=== PATIENT | male | born 1975 ===

== ENCOUNTER 2019-01-14 00:40 | Emergency (ER) | payer OTHER ==
[2019-01-14] MEDS ORDERED: ULTRAM PO ONE (03:46)
--- NOTE | 2019-01-14 03:50 | Emergency Department Report ---
Upper Extremity - HPI Chief Complaint: Extremity Injury, Upper Stated Complaint: BILATERAL SHOULDER PAIN Time Seen by Provider: 01/14/19 03:36 Upper Extremity: Left Shoulder, Right Shoulder Occurred When: 3 Days Mechanism: Unsure Severity: severe Symptoms: Yes Pain with Movement, Yes Limited Range of Movement, No Deformity, No Numbness, No Weakness, No Swelling, No Bruising/Ecchymosis, No Laceration or Abrasion Other History: 43-year-old -[place] male presents to the emergency room or bilateral shoulder pain 72 hours. 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 Patient reports that he last took ibuprofen 12 hours ago Aleve 8 hours ago and is currently has icy hot patches on his shoulders. Patient reports he is not able to elevate his arms above his elbow height. Patient denies any trauma. He has no past medical history takes no medications on a daily basis and has no known drug allergies. ED Review of Systems ROS: Stated complaint: BILATERAL SHOULDER PAIN Other details as noted in HPI Comment: All other systems reviewed and negative Musculoskeletal: arthralgia (bilateral shoulders) ED Past Medical Hx - Past Medical History Previous Medical History?: No - Surgical History Past Surgical History?: Yes Additional Surgical History: oral, Left hand /wrist - Social History Smoking Status: Current Every Day Smoker Substance Use Type: Alcohol, Marijuana - Medications Home Medications: Home Medications Medication Instructions Recorded Confirmed Last Taken Type Ibuprofen [Motrin 600 MG tab] 600 mg PO Q8H PRN #21 tablet 01/14/19 Unknown Rx methOCARBAMOL [Robaxin TAB] 500 mg PO BID #14 tab 01/14/19 Unknown Rx Upper Extremity Exam - Exam General: Vital signs noted. No distress. Alert and acting appropriately. Head and Torso: No HEENT Abnormality, No Neck Tenderness, No Chest/Lungs Abnormality, No Abdominal Tenderness, No Back Tenderness Shoulder Exam: Yes Shoulder Tenderness, Yes AC Joint Tenderness, No Clavicle Tenderness, No Normal Range of Motion in Shoulder, No Shoulder Deformity Arm Exam: No Arm/Humerus Tenderness, No Arm Deformity Elbow: No Elbow Tenderness, No Normal Range of Motion in Elbow, No Elbow Deformity Forearm: No Forearm Tenderness, No Forearm Deformity, No Pain with Pronation, No Pain with Supination Wrist: Yes Normal ROM in Wrist, No Wrist Tenderness, No Wrist Deformity, No Snuffbox Tenderness, No Pain with Axial Thumb Compression Hand: Yes Normal ROM in Digit(s), No Hand Tenderness, No Hand Deformity, No Digit Tenderness, No Digit(s) Deformity, No Tendon Dysfunction CMS Exam: No Broken Skin, No Normal Distal Pulses, No Normal Capillary Refill, No Normal Distal Sensation ED Course Vital Signs 01/14/19 00:45 Temperature 98.5 F Pulse Rate 95 H Respiratory 16 Rate Blood Pressure 118/77 O2 Sat by Pulse 97 Oximetry ED Medical Decision Making - Radiology Data Radiology results: report reviewed Patient: LIZZETH THAYER MR#: [id number] : 1975 Acct:[id number] Age/Sex: 43 / M ADM Date: 01/14/19 Loc: ED Attending Dr: Ordering Physician: RAFFI ANGLIN Date of Service: 01/14/19 Procedure(s): XR shoulder BILAT 2+V Accession Number(s): [id number] cc: RAFFI ANGLIN Fluoro Time In Minutes: PROCEDURE: RIGHT SHOULDER, 2 VIEWS TECHNIQUE: RIGHT shoulder radiographs including AP views in internal and external rotation. CPT 12822 HISTORY: Pain COMPARISONS: None . FINDINGS: Fracture (s) and/or Dislocation(s): None . Joint space(s): Normal . Soft tissues: Normal . Bone mineralization: Normal . Foreign bodies: None . IMPRESSION: Normal Examination . This document is electronically signed by Vivek Landry MD., January 14 2019 05:30:42 AM ET Transcribed By: CO Dictated By: VIVEK LANDRY MD Electronically Authenticated By: VIVEK LANDRY MD Signed Date/Time: 01/14/1932 DD/ 3 TD/TT: 01/14/19423 - Medical Decision Making Patient has been evaluated by this provider in fast track. X-rays of both shoulders show normal examination Patient was given tramadol for pain management. Patient is to follow-up with his primary care provider or orthopedic provider if his symptoms persist or gets worse. Critical care attestation.: If time is entered above; I have spent that time in minutes in the direct care of this critically ill patient, excluding procedure time. ED Disposition Clinical Impression: Bilateral shoulder pain Qualifiers: Chronicity: acute Qualified Code(s): M25.511 - Pain in right shoulder; M25.512 - Pain in left shoulder Disposition: DC-01 TO HOME OR SELFCARE Is pt being admited?: No Does the pt Need Aspirin: No Condition: Stable Instructions: Rotator Cuff Injury (ED) Additional Instructions: Please take your pain medication as needed. Please is to not operate heavy machinery while taking Robaxin. If his symptoms persists please follow up with orthopedic provider. Prescriptions: Ibuprofen [Motrin 600 MG tab] 600 mg PO Q8H PRN #21 tablet PRN Reason: Pain methOCARBAMOL [Robaxin TAB] 500 mg PO BID #14 tab Referrals: CONI REHMANLE ROY MD DESIRE [Primary Care Provider] - 3-5 Days RENUKA GUZMÁN MD [Staff Physician] - 3-5 Days Forms: Accompanied Note, Work/School Release Form(ED)
--- NOTE | 2019-01-14 05:32 | XRay Report ---
PROCEDURE: RIGHT SHOULDER, 2 VIEWS TECHNIQUE: RIGHT shoulder radiographs including AP views in internal and external rotation. CPT 7303 0 HISTORY: Pain COMPARISONS: None . FINDINGS: Fracture (s) and/or Dislocation(s): None . Joint space(s): Normal . Soft tissues: Normal . Bone mineralization: Normal . Foreign bodies: None . IMPRESSION: Normal Examination . This document is electronically signed by Vivek Borden MD., January 14 2019 05:30:42 AM ET
[2019-01-14 06:00] VITALS: BP 126/74
== END 2019-01-14 05:45 | disposition home or self-care (01) ==
LOC: ED 00:40
DX: M25.511 Pain in right shoulder (principal); M25.512 Pain in left shoulder; F17.200 Nicotine dependence, unspecified, uncomplicated; F12.10 Cannabis abuse, uncomplicated
CPT/HCPCS: 99283